=== PATIENT | male | born 1955 | race Caucasian/White ===

== ENCOUNTER 2017-09-16 08:24 | Inpatient (IN) | payer SELFPAY ==
[~2017-09-16] VITALS: Ht 185.4 cm; Wt 101.5 kg
[2017-09-16 09:17] LABS: BASOPHILS ABSOLUTE AUTO 0.04 K/mm3 (0.00-0.23); BASOPHILS PERCENT AUTO 0 % (0-2); EOSINOPHILS ABSOLUTE AUTO 0.11 K/mm3 (0.00-0.68); EOSINOPHILS PERCENT AUTO 1 % (0-6); Hematocrit 50.8 % (37.0-53.0); Hemoglobin 17.2 g/dL (13.5-17.5); IMMATURE GRAN ABSOLUTE AUTO 0.06 K/mm3 (0.00-0.10); IMMATURE GRAN PERCENT AUTO 1 % (0-1); LYMPHOCYTES ABSOLUTE AUTO 2.82 K/mm3 (0.84-5.20); LYMPHOCYTES PERCENT AUTO 22 % (21-46); MONOCYTES ABSOLUTE AUTO 1.06 K/mm3 (0.16-1.47); MONOCYTES PERCENT AUTO 8 % (4-13); Mean Corpuscular HGB Conc 33.9 g/dL (31.5-36.5); Mean Corpuscular Volume 92 fL (80-100); Mean Platelet Volume 10.4 fL (9.1-12.4); NEUTROPHILS ABSOLUTE AUTO 8.86 K/mm3 (1.96-9.15); NEUTROPHILS PERCENT AUTO 68 % (41-73); Platelet Count 328 K/mm3 (150-400); RDW Coefficient Variation 13.6 % (11.7-14.2); RDW Standard Deviation 45.4 fL (35.1-46.3); Red Blood Cell Count 5.55 M/mm3 (4.30-5.90); White Blood Cell Count 12.95 K/mm3 (4.00-11.30)
[2017-09-16 09:35] LABS: Alanine Aminotransfer (ALT/SGP 27 U/L (12-78); Albumin, Blood 3.9 g/dL (3.4-5.0); Albumin/Globulin Ratio 0.8 (0.8-1.8); Alk Phos 93 U/L (50-136); Anion Gap 8 mmol/L (6-16); Aspartate Aminotrans (AST/SGOT 24 U/L (12-37); Bilirubin, Total 0.4 mg/dL (0.1-1.0); Blood Urea Nitrogen 13 mg/dL (8-24); Bun/Creatinine Ratio 22.1 (12.0-20.0); CO2, Blood 25 mmol/L (21-32); Calcium, Blood 8.9 mg/dL (8.5-10.1); Chloride, Blood 105 mmol/L (98-108); Creatinine, Blood 0.59 mg/dL (0.60-1.20); Globulin, Blood 4.7 g/dL (2.2-4.0); Glomerular Filtration Rate >60 (60-); Glucose, Blood 136 mg/dL (70-99); Potassium, Blood 3.8 mmol/L (3.5-5.5); Sodium, Blood 138 mmol/L (136-145); Total Protein, Blood 8.6 g/dL (6.4-8.2)
[2017-09-17 04:18] LABS: Hematocrit 48.7 % (37.0-53.0); Hemoglobin 16.2 g/dL (13.5-17.5); Mean Corpuscular HGB 30.7 pg (26.0-34.0); Mean Corpuscular HGB Conc 33.3 g/dL (31.5-36.5); Mean Corpuscular Volume 92 fL (80-100); Mean Platelet Volume 10.2 fL (9.1-12.4); Platelet Count 311 K/mm3 (150-400); RDW Coefficient Variation 13.8 % (11.7-14.2); RDW Standard Deviation 46.3 fL (35.1-46.3); Red Blood Cell Count 5.28 M/mm3 (4.30-5.90); White Blood Cell Count 11.64 K/mm3 (4.00-11.30)
[2017-09-17 04:45] LABS: Anion Gap 7 mmol/L (6-16); Blood Urea Nitrogen 14 mg/dL (8-24); Bun/Creatinine Ratio 23.7 (12.0-20.0); CHOL/HDL RATIO 7.3; CO2, Blood 26 mmol/L (21-32); Calcium, Blood 8.9 mg/dL (8.5-10.1); Chloride, Blood 108 mmol/L (98-108); Cholesterol 240 mg/dL (50-200); Creatinine, Blood 0.59 mg/dL (0.60-1.20); Glomerular Filtration Rate >60 (60-); Glucose, Blood 106 mg/dL (70-99); HDL Cholesterol 33 mg/dL (>39); Low Density Lipoprotein Chol 164 mg/dL (0-110); Potassium, Blood 3.7 mmol/L (3.5-5.5); Sodium, Blood 141 mmol/L (136-145); Triglycerides 214 mg/dL (30-160); Very Low Density Lipoprot Chol 42 mg/dL (6-32)
[2017-09-18] MEDS ORDERED: Prinivil10 MG PO (12:35)
[2017-09-18] MEDS ORDERED: ASPI81CH PO (12:35)
[2017-09-18] MEDS ORDERED: ATOR80 PO (12:35)
[2017-09-18] MEDS ORDERED: METF500 PO (12:36)
[2017-09-18] MEDS ORDERED: METO25 PO (12:37)
== END 2017-09-18 13:24 | disposition home or self-care (01) | DRG 66 ==
LOC: ER 08:24 → PCU 08:25 → SURS 09-18 10:00
PROVIDERS: Emergency Medicine; Family Medicine
PROC: 3E0234Z Introduction of Serum, Toxoid and Vaccine into Muscle, Percutaneous Approach (ICD-10-PCS; principal; 2017-09-16)
DX: I63.9 Cerebral infarction, unspecified (principal); E66.09 Other obesity due to excess calories; I16.0 Hypertensive urgency; F17.210 Nicotine dependence, cigarettes, uncomplicated; Z23 Encounter for immunization; Z68.26 Body mass index [BMI] 26.0-26.9, adult
CPT/HCPCS: 36415; 70450; 80048; 80053; 80061; 82947; 83036; 83880; 84443; 84484; 85025; 85027; 93005; 93010; 93306; 93880; 96361; 96374; 97110; 97161; 97165; 99285; G8978; G8979; G8980; G8987; G8988; J0360; J7030

== ENCOUNTER 2017-09-22 16:09 | Emergency (ER) | payer SELFPAY ==
[~2017-09-22] VITALS: Ht 185.4 cm; Wt 104.3 kg
[~2017-09-22 16:09] MED LIST: ASPI81CH PO; ATOR80 PO; METF500 PO; METO25 PO; Prinivil10 MG PO
[2017-09-22 17:25] LABS: BASOPHILS ABSOLUTE AUTO 0.04 K/mm3 (0.00-0.23); BASOPHILS PERCENT AUTO 0 % (0-2); EOSINOPHILS ABSOLUTE AUTO 0.14 K/mm3 (0.00-0.68); EOSINOPHILS PERCENT AUTO 1 % (0-6); Hematocrit 44.2 % (37.0-53.0); Hemoglobin 14.9 g/dL (13.5-17.5); IMMATURE GRAN ABSOLUTE AUTO 0.02 K/mm3 (0.00-0.10); IMMATURE GRAN PERCENT AUTO 0 % (0-1); LYMPHOCYTES ABSOLUTE AUTO 2.68 K/mm3 (0.84-5.20); LYMPHOCYTES PERCENT AUTO 24 % (21-46); MONOCYTES ABSOLUTE AUTO 0.88 K/mm3 (0.16-1.47); MONOCYTES PERCENT AUTO 8 % (4-13); Mean Corpuscular HGB 30.8 pg (26.0-34.0); Mean Corpuscular HGB Conc 33.7 g/dL (31.5-36.5); Mean Corpuscular Volume 92 fL (80-100); Mean Platelet Volume 10.6 fL (9.1-12.4); NEUTROPHILS PERCENT AUTO 67 % (41-73); Platelet Count 295 K/mm3 (150-400); RDW Coefficient Variation 13.4 % (11.7-14.2); RDW Standard Deviation 45.2 fL (35.1-46.3); Red Blood Cell Count 4.83 M/mm3 (4.30-5.90); White Blood Cell Count 11.36 K/mm3 (4.00-11.30)
[2017-09-22 17:39] LABS: Alanine Aminotransfer (ALT/SGP 55 U/L (12-78); Albumin, Blood 3.6 g/dL (3.4-5.0); Albumin/Globulin Ratio 0.9 (0.8-1.8); Alk Phos 89 U/L (50-136); Anion Gap 11 mmol/L (6-16); Aspartate Aminotrans (AST/SGOT 70 U/L (12-37); Bilirubin, Total 0.4 mg/dL (0.1-1.0); Blood Urea Nitrogen 15 mg/dL (8-24); Bun/Creatinine Ratio 33.9 (12.0-20.0); CO2, Blood 22 mmol/L (21-32); Calcium, Blood 8.5 mg/dL (8.5-10.1); Chloride, Blood 108 mmol/L (98-108); Creatinine, Blood 0.44 mg/dL (0.60-1.20); Glomerular Filtration Rate >60 (60-); Glucose, Blood 96 mg/dL (70-99); Sodium, Blood 141 mmol/L (136-145); Total Protein, Blood 7.6 g/dL (6.4-8.2); Troponin I <0.015 ng/mL (0.000-0.040)
== END 2017-09-22 21:25 | disposition home or self-care (01) ==
LOC: ER 16:09
PROVIDERS: Emergency Medicine
DX: I16.0 Hypertensive urgency (principal); I10 Essential (primary) hypertension; Z86.73 Personal history of transient ischemic attack (TIA), and cerebral infarction without residual deficits; F17.200 Nicotine dependence, unspecified, uncomplicated; Z79.899 Other long term (current) drug therapy; Z79.82 Long term (current) use of aspirin; Z79.84 Long term (current) use of oral hypoglycemic drugs
CPT/HCPCS: 36415; 71046; 80053; 83880; 84484; 85025; 93005; 93010; 96374; 96376; 99284; J0360

== ENCOUNTER 2018-10-14 09:22 | Observation (INO) | payer MEDICARE ==
[~2018-10-14] VITALS: Ht 185.4 cm; Wt 95.0 kg
[~2018-10-14 09:22] MED LIST changes: -METF500 PO; +METF500C PO; -METO25 PO; +Metoprolol Tar100 MG PO
[2018-10-14] MEDS ORDERED: HYDCHL25 PO (10:22)
[2018-10-14] MEDS ORDERED: AMLO10 PO (10:24)
--- NOTE | 2018-10-14 18:00 | NUR ---
ADMISSION/END OF SHIFT: Pt arrived to room PCU 12 from [facility]. R groin site with tegaderm CHG intact. No bleeding, swelling, hematoma noted. Soft, non-tender. VSS. Pt denies pain or numbness tingling. Pt oriented to room, call light, care rounding and plan of care. denies questions. Will report to night rn.
--- NOTE | 2018-10-14 20:46 | NUR ---
PM NOTE. ASSUMED CARE OF PT APROX 1900, PT IS A&Ox4, PLEASENT AND COOPERATIVE WITH CARE. PT IS S/P ANGIO W/RIGHT GROIN SITE. GROIN SITE IS C/D/I, NO SWELLING, BLEEDING, REDNESS OR HEMATOMA. PT DENIES ANY PAIN OR CHEST PAIN. PROVIDER ORDERS THE PT IS TO LAY FLAT FOR 6 HOURS POST PROCEDURE, WHICH WOULD BE AT 2330. 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 NO EDEMA NOTED ON ASSESSMENT. PT'S L/S CLEAR T/O, RESP EVEN AND UNLABORED. BT PRESENT AND HYPOACTIVE, ABD IS SOFT AND NONTENDER TO PALP. CALL LIGHT IN REACH, BED IS LOCKED AND LOW WILL CONTINUE TO MONITOR.
--- NOTE | 2018-10-15 05:59 | NUR ---
SHIFT SUMMARY. NO ACUTE CHANGES NOTED THIS SHIFT. PT'S VS HAVE BEEN STABLE. PT DENIES ANY CHEST PAIN/PRESSURE, SOB OR N/V. PT'S RIGHT GROIN SITE IS C/D/I, NO REDNESS, SWELLING OR HEMATOMA NOTED. HEPARIN GTT WAS STARTED AT 2140 AT 13 U/KG/HR, 24.9 MLS/HR AND 95KG. PT HAS BEEN UP TO THE BATHROOM W/1 PERSON SBA WITHOUT ISSUE. CALL LIGHT IN REACH, BED IS LOCKED AND LOW, WILL CONTINUE TO MONITOR UNTIL REPORT IS GIVEN TO ONCOMING RN.
--- NOTE | 2018-10-15 07:22 | NUR ---
INITIAL ASSESSMENT: Pt back to bed after getting up to restroom. VSS. LS clear. HR bradycardic but regular. R groin site with tegaderm CHG intact. No bleeding, swelling, oozing, hematoma. Pt denies pain. States that he is anxious to go home. Heprin gtt discontinued per orders. Call light in reach. Will monitor.
[2018-10-15] MEDS ORDERED: CLOP75 PO (11:38)
--- NOTE | 2018-10-15 12:33 | NUR ---
DISCHARGE: Pt was given verbal and written discharge instruactions. verbalzied understanding. Denies questions. Rx was called to [facility]. IV discontinued, cath intact. Pt left via w/c with RN. Stable at time of discharge.
== END 2018-10-15 13:00 | disposition home or self-care (01) ==
LOC: MHTC 09:22 → PCU 17:19
PROVIDERS: ADMIT Radiology Diagnostic Radiology
DX: I73.9 Peripheral vascular disease, unspecified (principal); I10 Essential (primary) hypertension; E78.5 Hyperlipidemia, unspecified; I77.9 Disorder of arteries and arterioles, unspecified; I99.8 Other disorder of circulatory system; Z79.84 Long term (current) use of oral hypoglycemic drugs; Z79.899 Other long term (current) drug therapy; Z79.82 Long term (current) use of aspirin; Z86.73 Personal history of transient ischemic attack (TIA), and cerebral infarction without residual deficits
CPT/HCPCS: 36415; 37220; 37227; 75625; 75716; 75774; 85347; 85730; 96374; 99152; 99153; C1714; C1725; C1760; C1769; C1876; C1884; C1887; C1894; C2623; G0378; J1644; J2250; J3010; J7030; J7040; Q9967

== ENCOUNTER → 2021-10-21 | Outpatient (CLI) | payer MEDICARE ==
[~2021-10-21] MED LIST changes: +AMLO10 PO; +CLOP75 PO; +HYDCHL25 PO
== END | disposition home or self-care (01) ==
LOC: LAB SHORT 08:30 → LAB 08:30
DX: L08.9 Local infection of the skin and subcutaneous tissue, unspecified (principal)
CPT/HCPCS: 87070; 87205

== ENCOUNTER 2022-11-27 18:41 | Inpatient (IN) | payer MEDICARE ==
[~2022-11-27] VITALS: Ht 185.4 cm; Wt 91.4 kg
[~2022-11-27 18:41] MED LIST changes: +ATOR40TA PO; -ATOR80 PO; +METO100 PO; -Metoprolol Tar100 MG PO; -Prinivil10 MG PO; +ZESTRIL40 M1 PO
[2022-11-27 20:01] LABS: Hematocrit 33.3 % (37.0-53.0); Hemoglobin 11.7 g/dL (13.5-17.5); Mean Corpuscular HGB 29.4 pg (26.0-34.0); Mean Corpuscular HGB Conc 35.1 g/dL (31.5-36.5); Mean Corpuscular Volume 84 fL (80-100); Mean Platelet Volume 10.8 fL (9.1-12.4); Platelet Count 315 K/mm3 (150-400); RDW Coefficient Variation 14.1 % (11.7-14.2); RDW Standard Deviation 43.1 fL (35.1-46.3); Red Blood Cell Count 3.98 M/mm3 (4.30-5.90); White Blood Cell Count 17.16 K/mm3 (4.00-11.30)
[2022-11-27 20:23] LABS: Albumin, Blood 1.9 g/dL (3.4-5.0); Albumin/Globulin Ratio 0.5 (0.8-1.8); Bilirubin, Total 0.9 mg/dL (0.1-1.0); Bun/Creatinine Ratio 41.2 (12.0-20.0); Calcium, Blood 8.4 mg/dL (8.5-10.1); Globulin, Blood 4.1 g/dL (2.2-4.0); Potassium, Blood 2.9 mmol/L (3.5-5.5)
[2022-11-27 20:39] LABS: BAND PERCENT MAN 18 % (0-8); BASOPHILS PERCENT MAN 0 % (0-2); EOSINOPHILS PERCENT MAN 0 % (0-6); LYMPHOCYTES ABSOLUTE MAN 0.85 K/mm3 (0.84-5.20); LYMPHOCYTES PERCENT MAN 5 % (21-46); METAMYELOCYTE ABSOLUTE MAN 0.17 K/mm3 (0.00-0.00); METAMYELOCYTE PERCENT MAN 1 % (0-0); MONOCYTES ABSOLUTE MAN 0.51 K/mm3 (0.16-1.47); MONOCYTES PERCENT MAN 3 % (4-13); NEUTROPHILS ABSOLUTE MAN 15.61 K/mm3 (1.96-9.15); SEG NEUTROPHILS PERCENT MAN 73 % (41-73); TOTAL CELLS COUNTED 100
[2022-11-27] MEDS ORDERED: AMIODARONE HCL PO (22:53)
[2022-11-27] MEDS ORDERED: TAMSULOSIN HCL0.4 M1 PO (22:53)
[2022-11-27] MEDS ORDERED: CEPH500 PO (22:54)
--- NOTE | 2022-11-28 03:16 | NUR ---
ADMIT NOTE 67 YR OLD MALE ADMITTED TO FLOOR FROM THE ED WITH DX OF SEVER SEPSIS. RIGHT ARM, RIGHT SHOULDER DISPLAYED SWELLING, BLISTERS AND SOME YELLOW DRAINAGE FROM AREAS. ELEVATED TEMP. ALERT AND ORIENTED X 4. CONDOM CATH IN USE - WAS APPLIED IN THE ED. ORDERS FOR RADIOLOGY TO SCAN THE AREAS, RADIOLOGY CALLED AND WILL FOLLOW UP. NOTE 3 TOES AMPUTATED OF RIGHT FOOT - SCAR TISSUE. SEE PICS IN CHART FOR DETAILS OF SKIN ANOMALIES. ORIENTED TO USE OF CALL LIGHT. CALL LIGHT IN REACH.
--- NOTE | 2022-11-28 05:11 | NUR ---
[facility]RA[facility] [address] [facility] FREIGHT REPORTED QT 0.61, UP FROM 0.51 EARLIER. ASYMPTOMATIC. MD NOTIFIED. ORDERED BMP AND MG LEVELS.
[2022-11-28 06:11] LABS: Hemoglobin 11.2 g/dL (13.5-17.5); Mean Corpuscular HGB 29.6 pg (26.0-34.0); Mean Corpuscular Volume 84 fL (80-100); Platelet Count 274 K/mm3 (150-400); RDW Coefficient Variation 14.3 % (11.7-14.2); RDW Standard Deviation 44.2 fL (35.1-46.3); Red Blood Cell Count 3.79 M/mm3 (4.30-5.90); White Blood Cell Count 14.57 K/mm3 (4.00-11.30)
[2022-11-28 06:30] LABS: Albumin, Blood 1.6 g/dL (3.4-5.0); Albumin/Globulin Ratio 0.4 (0.8-1.8); Bun/Creatinine Ratio 41.1 (12.0-20.0); Creatinine, Blood 0.88 mg/dL (0.60-1.20); Globulin, Blood 3.7 g/dL (2.2-4.0); Magnesium, Blood 1.8 mg/dL (1.6-2.4); Potassium, Blood 2.7 mmol/L (3.5-5.5); Total Protein, Blood 5.3 g/dL (6.4-8.2)
[2022-11-28 07:00] LABS: BAND PERCENT MAN 10 % (0-8); BASOPHILS PERCENT MAN 0 % (0-2); EOSINOPHILS PERCENT MAN 0 % (0-6); LYMPHOCYTES ABSOLUTE MAN 0.58 K/mm3 (0.84-5.20); LYMPHOCYTES PERCENT MAN 4 % (21-46); METAMYELOCYTE ABSOLUTE MAN 0.14 K/mm3 (0.00-0.00); METAMYELOCYTE PERCENT MAN 1 % (0-0); MONOCYTES ABSOLUTE MAN 0.29 K/mm3 (0.16-1.47); MONOCYTES PERCENT MAN 2 % (4-13); MYELOCYTE ABSOLUTE MAN 0.14 K/mm3 (0.00-0.00); MYELOCYTE PERCENT MAN 1 % (0-0); SEG NEUTROPHILS PERCENT MAN 82 % (41-73); TOTAL CELLS COUNTED 100
--- NOTE | 2022-11-28 15:03 | NUR ---
History, Chart, Medications and Allergies reviewed before start of procedure.Pre-Op teaching done. Pt verbalizes understanding. Patient confirms NPO status and agrees with scheduled surgery.
--- NOTE | 2022-11-28 15:48 | NUR ---
PT TX TO PACU FOR SURGERY RUE CELLULITIS. PT HAD BITES FOR BREAKFAST A PIECE OF TOAST AT 0830, AND A FEW SIPS OF WATER WITH MEDS. HAS NOT HAD A BIG APPETITE THE PAST 4 DAYS. PT HAS BEEN A/O X4, HAD ATIVAN [address] OF RUE- NEW CONCERNS RELATED TO GAS GANGRENE- STARTING COBRA TX PROCESS. IN THE MEAN TIME PT WAS GOING TO BE TRANSFERRED TO PCU, BUT A DECISION MADE INSTEAD TO TAKE PT TO SURGERY THAN TX TO ICU 9- GAVE BEARING INSPECTOR'S REPORT AT BEDSIDE, WELL CALLING TO NOTIFY OF LOVENOX GIVEN TO PT THIS AM. CALLED REPORT TO MANAGER CAFE DIEUDONNE LAY WHO WILL RECEIVE PT AFTER SURGERY.
[2022-11-28 16:11] LABS: Alanine Aminotransfer (ALT/SGP 56 U/L (12-78); Albumin, Blood 1.5 g/dL (3.4-5.0); Albumin/Globulin Ratio 0.4 (0.8-1.8); Alk Phos 72 U/L (50-136); Anion Gap 8 mmol/L (6-16); Aspartate Aminotrans (AST/SGOT 74 U/L (12-37); Bilirubin, Total 0.9 mg/dL (0.1-1.0); Blood Urea Nitrogen 33 mg/dL (8-24); Bun/Creatinine Ratio 42.7 (12.0-20.0); CO2, Blood 19 mmol/L (21-32); Calcium, Blood 8.2 mg/dL (8.5-10.1); Chloride, Blood 112 mmol/L (98-108); Creatinine, Blood 0.77 mg/dL (0.60-1.20); Glomerular Filtration Rate 99 (60-); Glucose, Blood 109 mg/dL (70-99); Potassium, Blood 3.5 mmol/L (3.5-5.5); Sodium, Blood 139 mmol/L (136-145); Total Protein, Blood 5.5 g/dL (6.4-8.2)
[2022-11-28 16:12] LABS: C-REACTIVE PROTEIN, EXT RANGE >19.000 mg/dL (0.000-0.300)
--- NOTE | 2022-11-28 16:56 | NUR ---
11/28/22 1656 Lilibeth Perez PATIENT IS ALSO RECEIVING SCHEDULED ANTIBIOTICS.
--- NOTE | 2022-11-28 18:28 | NUR ---
ARRIVAL TO ICU PT ARRIVES TO ICU AT 1751. INTUBATED AND SEDATED. VENT SETTING AC/VC 16/450/5/60%. ETT 7.5, 25 AT TEETH, ADVANCE [address] MEJÍA, RT NOTIFIED. LUNGS CLEAR. NO COUGH/GAG/SWALLOW REFLEX. PROPOFOL STARTED FOR SEDATION. OGT PLACED, CONFIRMED BY XRAY. LIS. ART LINE TO LEFT RADIAL, TRANDUCER FLUSHED AND ZEROED. CVC TO RIGHT GROIN. LEVO STARTED FOR MAP>65. VASO ORDERED. DRESSING TO RIGHT ARM, PER OR STAFF, GAUZE SOAKED DAIKEN IN PLACE. BAHENA PATENT, DRAINING TO GRAVITY. DAUGHTER AT BEDSIDE, UPDATED. WILL CONTINUE TO MONITOR UNTIL REPORT TO ONCOMING NURSE.
--- NOTE | 2022-11-28 20:00 | NUR ---
ASSUMED CARE OF PT AT 1900. REPORT RECEIVED AT BEDSIDE. DR MEJÍA, AND DR CEBALLOS IN ROOM. PT ON LEVOPHED AT 25 MCG'S/MIN AND VASOPRESSIN STARTED AT 0.04 UNITS/HOUR. PT INTUBATED AC 16, Tv 450, FIO2 70 PERCENT WITH PEEP 8.0. HAVE BROUGHT FIO2 TO 60 PERCENT. WILL MONITOR FOR ABILITY TO TITRATE FURTHER. PT ON PROPOFOL AT 15 MCG'S/KG/MIN. PT REMAINS WITH SAS 3. HAS MAINTAINED > 90 PERCENT SATURATION. ORDERS RECEIVED FROM DR MEJÍA. SALINE BOLUS IN PROCESS. WILL REVIEW CHART AND PLAN OF CARE FOR THIS PT.
--- NOTE | 2022-11-28 21:45 | NUR ---
REPORT CALLED TO ALONSO JENNINGS AT [facility]. REPORT GIVEN IN SBAR FASHION. ALLOWED FOR QUESTIONS. DID CALL SHRUTI FITZGERALD PT'S DAUGHTER AND SON WITH UPDATE ON PT TRANSFERRING TO [place]. HAVE TITRATED LEVOPHED TO 15 MCG'S AND PROPOFOL UP TO 20 MCG'S.
--- NOTE | 2022-11-28 22:30 | NUR ---
OF NOTE: PT'S CELL PHONE, AND HIS GLASSES WERE LEFT IN ROOM. WILL CALL PT'S DAUGHTER IN AM TO INFORM HER THAT HER DAD'S PHONE AND GLASSES ARE AT NURSE'S DESK.
--- NOTE | 2022-11-29 | NUR ---
BELONGINGS: PT CELL PHONE & GLASSES FOUND AFTER PT LEFT ON TRANSFER TO [facility]. WILL NOTIFY FAMILY.
--- NOTE | 2022-11-29 01:46 | NUR ---
PT LEAVES ICU WITH [facility] TO [facility]. PT OUT AT 2156 WITH THIS RN TO ACCOMPANY. LEVOPHED WAS TITRATED DOWN TO 12 MCG'S/MIN AND PROPOFOL UP TO 30 MCG'S/KG/MIN IN ROUTE.
== END 2022-11-28 21:56 | disposition short-term general hospital (02) | DRG 853 ==
LOC: ER 18:41 → ICUW 22:00 → MEDS 22:00 → PCU 11-28 14:52 → ICUW 11-28 15:04
PROVIDERS: Emergency Medicine; Family Medicine; Orthopaedic Surgery; Student in an Organized Health Care Education/Training Program; ADMIT Internal Medicine
PROC: 3E03329 Introduction of Other Anti-infective into Peripheral Vein, Percutaneous Approach (ICD-10-PCS; 2022-11-27)
PROC: 0T9B70Z Drainage of Bladder with Drainage Device, Via Natural or Artificial Opening (ICD-10-PCS; 2022-11-27)
PROC: 3E033XZ Introduction of Vasopressor into Peripheral Vein, Percutaneous Approach (ICD-10-PCS; 2022-11-27)
PROC: 03HY32Z Insertion of Monitoring Device into Upper Artery, Percutaneous Approach (ICD-10-PCS; 2022-11-27)
PROC: 0JBD0ZZ Excision of Right Upper Arm Subcutaneous Tissue and Fascia, Open Approach (ICD-10-PCS; 2022-11-28)
PROC: 0JBG0ZZ Excision of Right Lower Arm Subcutaneous Tissue and Fascia, Open Approach (ICD-10-PCS; 2022-11-28)
PROC: 0WBF0ZZ Excision of Abdominal Wall, Open Approach (ICD-10-PCS; 2022-11-28)
PROC: 0DH67UZ Insertion of Feeding Device into Stomach, Via Natural or Artificial Opening (ICD-10-PCS; 2022-11-28)
PROC: 0J9G0ZZ Drainage of Right Lower Arm Subcutaneous Tissue and Fascia, Open Approach (ICD-10-PCS; 2022-11-28)
PROC: 0J9D0ZZ Drainage of Right Upper Arm Subcutaneous Tissue and Fascia, Open Approach (ICD-10-PCS; 2022-11-28)
PROC: 06HY33Z Insertion of Infusion Device into Lower Vein, Percutaneous Approach (ICD-10-PCS; principal; 2022-11-28 17:45)
DX: A41.9 Sepsis, unspecified organism (principal); J96.00 Acute respiratory failure, unspecified whether with hypoxia or hypercapnia; M72.6 Necrotizing fasciitis; R65.21 Severe sepsis with septic shock; I62.9 Nontraumatic intracranial hemorrhage, unspecified; L03.113 Cellulitis of right upper limb; I49.9 Cardiac arrhythmia, unspecified; E78.5 Hyperlipidemia, unspecified; I10 Essential (primary) hypertension; E87.6 Hypokalemia; F12.10 Cannabis abuse, uncomplicated; E11.9 Type 2 diabetes mellitus without complications; F10.10 Alcohol abuse, uncomplicated; M60.9 Myositis, unspecified; F17.210 Nicotine dependence, cigarettes, uncomplicated; Z79.899 Other long term (current) drug therapy; Z79.82 Long term (current) use of aspirin; Z79.02 Long term (current) use of antithrombotics/antiplatelets; Z79.2 Long term (current) use of antibiotics; Z95.810 Presence of automatic (implantable) cardiac defibrillator; Z89.421 Acquired absence of other right toe(s); Z86.79 Personal history of other diseases of the circulatory system; Z79.811 Long term (current) use of aromatase inhibitors; Z79.84 Long term (current) use of oral hypoglycemic drugs
CPT/HCPCS: 36415; 71045; 73201; 74177; 80048; 80053; 82947; 83605; 83735; 83880; 85025; 86140; 87040; 87070; 87071; 87075; 87205; 94002; 96361; 96365; 99285-25; A9270; C9113; J0330; J0692; J1100; J1650; J2060; J2185; J2250; J2370; J2405; J2543; J2704; J3010; J3370; J3480; J7030; J7040; J7050; J7120; P9047; Q9967

== ENCOUNTER 2023-02-14 03:37 | Day surgery (SDC) | payer MEDICARE ==
[~2023-02-14 03:37] MED LIST changes: +AMIODARONE HCL PO; +CEPH500 PO; +TAMSULOSIN HCL0.4 M1 PO
== END 2023-02-14 22:35 | disposition home or self-care (01) ==
LOC: WOUND 03:37
DX: L89.150 Pressure ulcer of sacral region, unstageable (principal); I73.9 Peripheral vascular disease, unspecified; I48.20 Chronic atrial fibrillation, unspecified; I69.359 Hemiplegia and hemiparesis following cerebral infarction affecting unspecified side; E44.0 Moderate protein-calorie malnutrition; M72.6 Necrotizing fasciitis; I82.622 Acute embolism and thrombosis of deep veins of left upper extremity; Z87.891 Personal history of nicotine dependence

== ENCOUNTER 2023-03-18 00:48 | Day surgery (SDC) | payer MEDICARE ==
[~2023-03-18 00:48] MED LIST changes: +DOXY100 PO; +GABA100 PO; +MAGNESIUM OXID500 MG PO; +OXYC5 PO; +PANT40 PO; +WARF6 PO
== END 2023-03-18 22:45 | disposition home or self-care (01) ==
LOC: WOUND 00:48
DX: L89.154 Pressure ulcer of sacral region, stage 4 (principal); L03.113 Cellulitis of right upper limb; I73.9 Peripheral vascular disease, unspecified; I48.20 Chronic atrial fibrillation, unspecified; I69.359 Hemiplegia and hemiparesis following cerebral infarction affecting unspecified side; E44.0 Moderate protein-calorie malnutrition; M72.6 Necrotizing fasciitis; I82.622 Acute embolism and thrombosis of deep veins of left upper extremity; Z68.26 Body mass index [BMI] 26.0-26.9, adult
CPT/HCPCS: 99406; A9270

== ENCOUNTER 2023-03-25 00:36 | Day surgery (SDC) | payer MEDICARE | END 2023-03-25 22:54 | disposition home or self-care (01) | LOC: WOUND 00:36 | DX: L89.154 Pressure ulcer of sacral region, stage 4 (principal); S51.801D Unspecified open wound of right forearm, subsequent encounter; I73.9 Peripheral vascular disease, unspecified; I48.20 Chronic atrial fibrillation, unspecified; I69.359 Hemiplegia and hemiparesis following cerebral infarction affecting unspecified side; E44.0 Moderate protein-calorie malnutrition; M72.6 Necrotizing fasciitis; I82.622 Acute embolism and thrombosis of deep veins of left upper extremity ==

== ENCOUNTER 2023-04-01 00:22 | Day surgery (SDC) | payer MEDICARE | END 2023-04-01 23:12 | disposition home or self-care (01) | LOC: WOUND 00:22 | DX: L89.154 Pressure ulcer of sacral region, stage 4 (principal); L03.113 Cellulitis of right upper limb; S51.801D Unspecified open wound of right forearm, subsequent encounter; I73.9 Peripheral vascular disease, unspecified; I48.20 Chronic atrial fibrillation, unspecified; I69.359 Hemiplegia and hemiparesis following cerebral infarction affecting unspecified side; E44.0 Moderate protein-calorie malnutrition; M72.6 Necrotizing fasciitis; I82.622 Acute embolism and thrombosis of deep veins of left upper extremity | CPT/HCPCS: 99406; A9270; G0463 ==

== ENCOUNTER 2023-04-08 02:25 | Day surgery (SDC) | payer MEDICARE | END 2023-04-08 22:46 | disposition home or self-care (01) | LOC: WOUND 02:25 | DX: L89.154 Pressure ulcer of sacral region, stage 4 (principal); L03.113 Cellulitis of right upper limb; S51.801D Unspecified open wound of right forearm, subsequent encounter; I73.9 Peripheral vascular disease, unspecified; I48.20 Chronic atrial fibrillation, unspecified; I69.359 Hemiplegia and hemiparesis following cerebral infarction affecting unspecified side; E44.0 Moderate protein-calorie malnutrition; M72.6 Necrotizing fasciitis; I82.622 Acute embolism and thrombosis of deep veins of left upper extremity; Z68.26 Body mass index [BMI] 26.0-26.9, adult | CPT/HCPCS: G0463 ==

== ENCOUNTER 2023-04-15 02:04 | Day surgery (SDC) | payer MEDICARE | END 2023-04-15 22:36 | disposition home or self-care (01) | LOC: WOUND 02:04 | DX: L89.154 Pressure ulcer of sacral region, stage 4 (principal); S51.801D Unspecified open wound of right forearm, subsequent encounter; I73.9 Peripheral vascular disease, unspecified; I48.20 Chronic atrial fibrillation, unspecified; I69.359 Hemiplegia and hemiparesis following cerebral infarction affecting unspecified side; E44.0 Moderate protein-calorie malnutrition; M72.6 Necrotizing fasciitis; I82.622 Acute embolism and thrombosis of deep veins of left upper extremity; Z68.26 Body mass index [BMI] 26.0-26.9, adult | CPT/HCPCS: G0463 ==

== ENCOUNTER 2023-04-22 02:16 | Day surgery (SDC) | payer MEDICARE | END 2023-04-22 22:52 | disposition home or self-care (01) | LOC: WOUND 02:16 | DX: L89.154 Pressure ulcer of sacral region, stage 4 (principal); S51.801D Unspecified open wound of right forearm, subsequent encounter; X58.XXXD Exposure to other specified factors, subsequent encounter; I73.9 Peripheral vascular disease, unspecified; I48.20 Chronic atrial fibrillation, unspecified; I69.359 Hemiplegia and hemiparesis following cerebral infarction affecting unspecified side; E44.0 Moderate protein-calorie malnutrition; M72.6 Necrotizing fasciitis; I82.622 Acute embolism and thrombosis of deep veins of left upper extremity | CPT/HCPCS: G0463 ==

== ENCOUNTER 2023-04-29 00:46 | Day surgery (SDC) | payer MEDICARE | END 2023-04-29 22:35 | disposition home or self-care (01) | LOC: WOUND 00:46 | DX: L89.154 Pressure ulcer of sacral region, stage 4 (principal); S51.801D Unspecified open wound of right forearm, subsequent encounter; I73.9 Peripheral vascular disease, unspecified; I48.20 Chronic atrial fibrillation, unspecified; I69.359 Hemiplegia and hemiparesis following cerebral infarction affecting unspecified side; E44.0 Moderate protein-calorie malnutrition; M72.6 Necrotizing fasciitis; I82.622 Acute embolism and thrombosis of deep veins of left upper extremity; Z68.26 Body mass index [BMI] 26.0-26.9, adult | CPT/HCPCS: G0463 ==